=== PATIENT | male | born 1980 | race Caucasian/White ===

== ENCOUNTER 2017-01-13 18:15 | Observation (INO) | payer OTHER ==
[~2017-01-13] VITALS: Ht 167.6 cm; Wt 96.0 kg
[~2017-01-13 18:15] MED LIST: IBUPROFEN800 MG PO; LO-DOSE ASPIRIN81 M2 PO; MOBIC7.5 MG PO; MOTRIN600 MG PO; MOTRIN800 MG PO; MUCUS ER600 MG PO; NOHOMEMEDS; NORCO 5/3251 TABLET PO; PEN-VEE K,VEET500 MG PO; PHENERGAN-CODE120 ML PO; PRAVASTATIN SOD40 MG PO; PROVENTIL HFA6.7 GM IH; VENTOLIN HFA18 GM IH
[2017-01-13 19:24] LABS: EOSINOPHIL (%) 3.1 % (0-5); EOSINOPHIL COUNT 0.2 K/uL (0-0.3); HEMATOCRIT 47.1 % (38.0-50.0); IMMATURE GRANULOCYTE (%) 0.3 % (0.0-0.7); INSTRUMENT ABS NEUTROPHIL CT 4.2 K/uL; LYMPHOCYTE COUNT 1.7 K/uL (1.0-2.8); MCH 27.8 PG (29.0-34.0); MCHC 32.9 G/DL (30.0-36.0); MCV 84.6 FL (86-99); MEAN PLAT.VOLUME 10.4 uM^3 (9.0-12.4); MONOCYTE COUNT 0.9 K/uL (0-0.8); NEUTROPHIL (%) 59.1 % (45-76); NEUTROPHIL COUNT 4.2 K/uL (1.8-6.4); PLATELET COUNT 281 K/uL (156-360); RBC DIS.WIDTH-CV 12.9 % (11.8-14.6); RBC DIS.WIDTH-SD 39.8 % (39-53); RED BLOOD COUNT 5.57 M/uL (4.00-5.50)
[2017-01-13 19:30] LABS: BASE EXCESS 1.2 mEq/L (-3 to +3); BICARBONATE 26.6 mEq/L (22-26); CARBOXY HGB 2.3 % (0-5); METHEMOGLOBIN 1.3 % (0-1.5); PCO2 44 mm Hg (35-45); PO2 79 mm Hg (80-100); pH 7.39 (7.35-7.45)
[2017-01-13 19:32] LABS: COMMENTS - BLOOD GASES C+A+; DEVICE ROOM AIR; FI02 21 %; SITE LR; TOTAL RESP RATE 14 resp/min
[2017-01-13 19:35] LABS: D-DIMER ELISA 0.42 mg/L FEU (< 0.57)
[2017-01-13 19:40] LABS: CHLORIDE 106 mEq/L (99-109); SODIUM 141 mEq/L (136-147)
[2017-01-13 19:42] LABS: GLUCOSE 72 mg/dL (70-99)
[2017-01-13 19:44] LABS: ANION GAP 12 MEQ/L (2-14); TOTAL BILIRUBIN 0.3 mg/dL (0.0-1.0)
[2017-01-13 19:46] LABS: ALKALINE PHOSPHATASE 67 IU/L (3-129); GFR ESTIMATE (CALCULATED) > 59 mL/min/
[2017-01-13 19:47] LABS: UREA NITROGEN (BUN) 14 mg/dL (9-23)
[2017-01-13 19:51] LABS: TROP-I INTERPRETATION NEGATIVE; TROPONIN-I < 0.01 ng/mL (0.0-0.30)
[2017-01-13] MEDS ORDERED: CLARITIN-D 21 TABLET PO (21:23)
[2017-01-14 00:10] LABS: INFLUENZA A VIRAL ANTIGEN NEGATIVE; INFLUENZA B VIRAL ANTIGEN NEGATIVE
[2017-01-14 00:43] LABS: SERUM ETHYL ALCOHOL < 10 mg/dL
[2017-01-14 03:32] VITALS: BP 95/54
[2017-01-14 06:53] LABS: ANION GAP 8 MEQ/L (2-14); CHLORIDE 105 MEQ/L (99-109); GFR ESTIMATE (CALCULATED) > 59 mL/min/; GLUCOSE 130 mg/dL (70-99); POTASSIUM 4.1 MEQ/L (3.7-5.4); SAMPLE HEMOLYSIS CHECK 0; SAMPLE ICTERIC CHECK 0; SAMPLE LIPEMIA CHECK 0; SODIUM 139 MEQ/L (136-147); UREA NITROGEN (BUN) 15 mg/dL (9-23)
[2017-01-14 07:00] LABS: EOSINOPHIL (%) 0.1 % (0-5); HEMATOCRIT 45.1 % (38.0-50.0); IMMATURE GRANULOCYTE (%) 0.3 % (0.0-0.7); INSTRUMENT ABS NEUTROPHIL CT 7.9 K/uL; MCH 27.5 PG (29.0-34.0); MCHC 32.4 G/DL (30.0-36.0); MCV 84.9 FL (86-99); MEAN PLAT.VOLUME 10.4 uM^3 (9.0-12.4); MONOCYTE (%) 1.2 % (3-12); MONOCYTE COUNT 0.1 K/uL (0-0.8); NEUTROPHIL (%) 87.2 % (45-76); NEUTROPHIL COUNT 7.9 K/uL (1.8-6.4); PLATELET COUNT 254 K/uL (156-360); RBC DIS.WIDTH-SD 39.8 % (39-53); RED BLOOD COUNT 5.31 M/uL (4.00-5.50); WHITE BLOOD COUNT 9.1 K/uL (4.1-10.2)
[2017-01-14 07:26] VITALS: BP 107/62
[2017-01-14 07:31] LABS: AMPHETAMINES QUANT VALUE 0 NG/ML; BARBITUATES QUANT VALUE 0 NG/ML; BENZODIAZEPINES QUANT VALUE 0 NG/ML; BENZODIAZEPINES, URINE SCREEN Negative (200 ng/mL); MARIJUANA QUANT VALUE 0 NG/ML; OPIATES QUANTITATIVE VALUE 0 NG/ML; PHENCYCLIDINE QUANT VALUE 0 NG/ML
[2017-01-14 10:59] VITALS: BP 132/60
[2017-01-14 16:00] VITALS: BP 137/82
[2017-01-14] MEDS ORDERED: PREDNISONE10 MG PO (16:52)
[2017-01-14] MEDS ORDERED: ROWEEPRA500 MG PO ×2 (16:52→16:56)
[2017-01-14] MEDS ORDERED: AZITHROMYCIN500 M1 PO (16:52)
== END 2017-01-14 17:10 | disposition home or self-care (01) ==
LOC: EME 18:15 → EDOF 23:11 → 5WEST 23:11
PROVIDERS: Emergency Medicine; Physician Assistant Medical
DX: R07.89 Other chest pain (principal); J20.9 Acute bronchitis, unspecified; R94.31 Abnormal electrocardiogram [ECG] [EKG]; R55 Syncope and collapse; J45.909 Unspecified asthma, uncomplicated; E66.9 Obesity, unspecified; R32 Unspecified urinary incontinence; F17.210 Nicotine dependence, cigarettes, uncomplicated; Z68.34 Body mass index [BMI] 34.0-34.9, adult
CPT/HCPCS: 36600; 71010; 80048; 80053; 80306 90; 82803; 83880; 84484; 85025; 85379; 87502; 93005; 94640; 94640 76; 94799; 99202; 99281; 99284; G0378; G0480; J2930; J7030

== ENCOUNTER 2017-01-16 19:12 | Emergency (ER) | payer OTHER ==
[~2017-01-16] VITALS: Ht 167.6 cm; Wt 94.7 kg
[~2017-01-16 19:12] MED LIST changes: +AZITHROMYCIN500 M1 PO; +CLARITIN-D 21 TABLET PO; +PREDNISONE10 MG PO; +ROWEEPRA500 MG PO
[2017-01-16 20:10] LABS: HEMATOCRIT 45.6 % (38.0-50.0); MCH 27.7 PG (29.0-34.0); MCHC 32.5 G/DL (30.0-36.0); MCV 85.4 FL (86-99); MEAN PLAT.VOLUME 10.1 uM^3 (9.0-12.4); PLATELET COUNT 293 K/uL (156-360); RBC DIS.WIDTH-CV 13.3 % (11.8-14.6); RBC DIS.WIDTH-SD 41.5 % (39-53); RED BLOOD COUNT 5.34 M/uL (4.00-5.50); WHITE BLOOD COUNT 12.5 K/uL (4.1-10.2)
[2017-01-16 20:18] LABS: AMPHETAMINE NEGATIVE (500 ng/mL); BARBITURATES NEGATIVE (200 ng/mL); BENZODIAZEPINES NEGATIVE (150 ng/mL); COCAINE NEGATIVE (150 ng/mL); INTERNAL CONTROLS VALID? YES; METHADONE NEGATIVE (200 ng/mL); METHAMPHETAMINE NEGATIVE (500 ng/mL); OPIATES (MORPHINE) NEGATIVE (100 ng/mL); OXYCODONE NEGATIVE (100 ng/mL); PHENCYCLIDINE NEGATIVE (25 ng/mL); PROPOXYPHENE NEGATIVE (300 ng/mL); THC CANNABINOIDS NEGATIVE (50 ng/mL); TRICYCLIC ANTIDEPRESSANTS NEGATIVE (300 ng/mL)
[2017-01-16 20:19] LABS: CHLORIDE 105 mEq/L (99-109); POTASSIUM 3.9 mEq/L (3.7-5.4); SODIUM 140 mEq/L (136-147)
[2017-01-16 20:22] LABS: MAGNESIUM 2.4 mg/dL (1.3-2.7)
[2017-01-16 20:23] LABS: ANION GAP 11 MEQ/L (2-14); GLUCOSE 80 mg/dL (70-99)
[2017-01-16 20:24] LABS: TOTAL BILIRUBIN 0.4 mg/dL (0.0-1.0)
[2017-01-16 20:25] LABS: ALKALINE PHOSPHATASE 64 IU/L (3-129); GFR ESTIMATE (CALCULATED) > 59 mL/min/
[2017-01-16 20:26] LABS: UREA NITROGEN (BUN) 18 mg/dL (9-23)
[2017-01-16 20:26] LABS: SERUM ETHYL ALCOHOL < 10 mg/dL
[2017-01-16 20:30] LABS: TROP-I INTERPRETATION NEGATIVE; TROPONIN-I < 0.01 ng/mL (0.0-0.30)
[2017-01-16 21:50] VITALS: BP 120/78
== END 2017-01-16 21:50 | disposition home or self-care (01) ==
LOC: EME 19:12
PROVIDERS: Emergency Medicine
DX: G40.909 Epilepsy, unspecified, not intractable, without status epilepticus (principal)
CPT/HCPCS: 70450; 80053; 83735; 84484; 85027; 93005; 99281; 99284; G0480; J7030

== ENCOUNTER 2017-06-24 19:40 | Emergency (ER) | payer OTHER ==
[~2017-06-24] VITALS: Ht 177.8 cm; Wt 100.8 kg
[2017-06-24 20:58] LABS: EOSINOPHIL COUNT 0.1 K/uL (0-0.3); HEMATOCRIT 45.3 % (38.0-50.0); IMMATURE GRANULOCYTE (%) 0.3 % (0.0-0.7); INSTRUMENT ABS NEUTROPHIL CT 7.3 K/uL; MCH 28.2 PG (29.0-34.0); MCHC 33.1 G/DL (30.0-36.0); MCV 85.2 FL (86-99); MEAN PLAT.VOLUME 10.3 uM^3 (9.0-12.4); MONOCYTE (%) 8.4 % (3-12); MONOCYTE COUNT 0.8 K/uL (0-0.8); NEUTROPHIL (%) 79.4 % (45-76); NEUTROPHIL COUNT 7.3 K/uL (1.8-6.4); PLATELET COUNT 226 K/uL (156-360); RBC DIS.WIDTH-CV 13.1 % (11.8-14.6); RBC DIS.WIDTH-SD 40.3 % (39-53); RED BLOOD COUNT 5.32 M/uL (4.00-5.50); WHITE BLOOD COUNT 9.2 K/uL (4.1-10.2)
[2017-06-24 21:06] LABS: CHLORIDE 106 mEq/L (99-109); POTASSIUM 3.8 mEq/L (3.7-5.4); SODIUM 137 mEq/L (136-147)
[2017-06-24 21:07] LABS: GLUCOSE 91 mg/dL (70-99)
[2017-06-24 21:09] LABS: ANION GAP 10 MEQ/L (2-14)
[2017-06-24 21:11] LABS: GFR ESTIMATE (CALCULATED) > 59 mL/min/
[2017-06-24 21:12] LABS: UREA NITROGEN (BUN) 16 mg/dL (9-23)
[2017-06-24] MEDS ORDERED: KEPPRA500 MG PO (21:50)
[2017-06-24 22:47] VITALS: BP 108/71
== END 2017-06-24 22:54 | disposition home or self-care (01) ==
LOC: EME → EDBD 19:40 → EME 19:40
PROVIDERS: Emergency Medicine
DX: J04.0 Acute laryngitis (principal); G40.909 Epilepsy, unspecified, not intractable, without status epilepticus; Z72.0 Tobacco use; Z79.82 Long term (current) use of aspirin; I45.10 Unspecified right bundle-branch block
CPT/HCPCS: 70450; 80048; 85025; 93005; 99281; 99285; J1100; J1953; J7050

== ENCOUNTER 2017-10-05 22:52 | Emergency (ER) | payer OTHER ==
[~2017-10-05] VITALS: Ht 160 cm; Wt 95.2 kg
[~2017-10-05 22:52] MED LIST changes: +KEPPRA500 MG PO
[2017-10-06] MEDS ORDERED: HYCODAN SYRUP480 ML PO (00:35)
[2017-10-06 01:31] VITALS: BP 115/73
== END 2017-10-06 01:32 | disposition home or self-care (01) ==
LOC: EME 22:52 → EXP 22:52
DX: J20.8 Acute bronchitis due to other specified organisms (principal); E86.0 Dehydration; F17.200 Nicotine dependence, unspecified, uncomplicated; Z71.6 Tobacco abuse counseling; J45.909 Unspecified asthma, uncomplicated
CPT/HCPCS: 71020; 99281; 99284